=== PATIENT | male | born 2000 | race Caucasian/White ===

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

== ENCOUNTER 2020-08-16 21:56 | Emergency (ER) | payer OTHER ==
[~2020-08-16] VITALS: Ht 193 cm; Wt 154.6 kg
[~2020-08-16 21:56] MED LIST changes: +TRAZ-257 PO
[2020-08-17 00:35] LABS: BASOPHILS % (AUTO) 0.9 % (0.0-2.0); EOSINOPHILS % (AUTO) 2.9 % (1.0-6.0); HEMATOCRIT 48.6 % (41-53); HEMOGLOBIN 17.1 g/dL (13.5-17.5); LYMPHOCYTES # (AUTO) 2.9 K/uL (1.0-4.8); MEAN CORPUSCULAR HEMOGLOBIN 30.5 pg (26.0-34.0); MEAN CORPUSCULAR HGB CONC 35.2 G/dL (31.0-37.0); MEAN CORPUSCULAR VOLUME 87 fL (80-100); MONOCYTES # (AUTO) 1.2 K/uL (0.1-1.0); MONOCYTES % (AUTO) 10.8 % (2.0-9.0); NEUTROPHILS # (AUTO) 6.4 K/uL (1.8-7.7); NEUTROPHILS % (AUTO) 58.4 % (40.0-70.0); PLATELET COUNT (AUTO) 255 K/uL (150-450); RED CELL DISTRIBUTION WIDTH 12.9 % (11.5-14.5)
[2020-08-17 00:46] LABS: ALANINE AMINOTRANSFERASE 135 U/L (12-78); ALBUMIN 4.1 g/dL (3.4-5.0); ALKALINE PHOSPHATASE 73 U/L (46-116); ANION GAP 7 mmol/L (8-16); ASPARTATE AMINOTRANSFERASE 50 U/L (15-37); BILIRUBIN,TOTAL 2.7 mg/dL (0.1-1.0); CALCIUM, TOTAL 9.5 mg/dL (8.8-10.5); CARBON DIOXIDE 26 mmol/L (22-29); CHLORIDE 105 mmol/L (98-107); CREATININE 0.77 mg/dL (0.60-1.30); GLOMERULAR FILTR. RATE CALC > 60 mL/min (>60); GLUCOSE,RANDOM 104 mg/dL (70-110); POTASSIUM 3.8 mmol/L (3.5-5.1); SODIUM SERUM 138 mmol/L (136-145)
[2020-08-17 00:55] LABS: AMPHET/METH SCREEN,URINE NEGATIVE (NEGATIVE); BARBITURATE SCREEN, URINE NEGATIVE (NEGATIVE); BENZODIAZEPINES SCREEN,URINE NEGATIVE (NEGATIVE); CANNABINOID SCREEN,URINE NEGATIVE (NEGATIVE); COCAINE SCREEN,URINE NEGATIVE (NEGATIVE); METHADONE SCREEN, URINE NEGATIVE (NEGATIVE); OPIATE SCREEN,URINE NEGATIVE (NEGATIVE)
[2020-08-17 00:56] LABS: PHENCYCLIDINE SCREEN,URINE NEGATIVE (NEGATIVE)
[2020-08-17 00:59] LABS: UREA NITROGEN, BLOOD 15 mg/dL (7-18)
[2020-08-17 02:49] VITALS: BP 156/90
== END 2020-08-17 03:01 | disposition home or self-care (01) ==
LOC: EMS 21:56
DX: F41.1 Generalized anxiety disorder (principal); R59.0 Localized enlarged lymph nodes; J45.909 Unspecified asthma, uncomplicated
CPT/HCPCS: 36415; 76536; 80053; 80307; 85025; 99284; G0480

== ENCOUNTER 2022-01-13 08:55 | Emergency (ER) | payer OTHER ==
[~2022-01-13] VITALS: Ht 193 cm; Wt 174.0 kg
[~2022-01-13 08:55] MED LIST changes: -TRAZ-257 PO
[2022-01-13] MEDS ORDERED: DEXAMETHASONE SOD PHOS 4 MG/ML VIAL IM ONE (11:15)
[2022-01-13 12:21] VITALS: BP 133/67
== END 2022-01-13 13:01 | disposition home or self-care (01) ==
LOC: EMS 08:55
DX: J02.8 Acute pharyngitis due to other specified organisms (principal); B97.89 Other viral agents as the cause of diseases classified elsewhere; J45.909 Unspecified asthma, uncomplicated; Z79.899 Other long term (current) drug therapy; Z91.030 Bee allergy status
CPT/HCPCS: 87430; 96372; 99283; J1100

== ENCOUNTER 2022-06-01 16:55 | Emergency (ER) | payer OTHER ==
[~2022-06-01] VITALS: Ht 193 cm; Wt 181.8 kg
[2022-06-01 18:49] VITALS: BP 145/97
== END 2022-06-01 20:26 | disposition home or self-care (01) ==
LOC: EMS 16:55
DX: T16.1XXA Foreign body in right ear, initial encounter (principal); J45.909 Unspecified asthma, uncomplicated; F17.210 Nicotine dependence, cigarettes, uncomplicated; F12.90 Cannabis use, unspecified, uncomplicated; Z91.030 Bee allergy status; X58.XXXA Exposure to other specified factors, initial encounter; Y93.89 Activity, other specified; Y92.89 Other specified places as the place of occurrence of the external cause; Y99.8 Other external cause status
CPT/HCPCS: 99284; Z7502

== ENCOUNTER 2023-02-09 11:31 | Emergency (ER) | payer OTHER ==
[~2023-02-09] VITALS: Ht 193 cm; Wt 170.4 kg
[2023-02-09] MEDS ORDERED: BUSP5TAB20 PO (11:41)
[2023-02-09 11:42] VITALS: BP 151/69
== END 2023-02-09 15:36 | disposition left against medical advice (07) ==
LOC: EMS 11:31
DX: Z53.21 Procedure and treatment not carried out due to patient leaving prior to being seen by health care provider (principal)
CPT/HCPCS: 99281; Z7502